=== PATIENT | male | born 1975 | race Caucasian/White ===

== ENCOUNTER → 2017-01-11 | Outpatient (CLI) | payer OTHER ==
[2017-01-12 10:16] LABS: BUN 15 mg/dL (7-18)
[2017-01-12 10:17] LABS: GFR (ESTIMATED) 126 ML/MIN (>60)
[2017-01-17 09:37] LABS: Hep B Surface Ab, Qual Reactive (.)
== END ==
LOC: CARL-LAB 10:50
PROVIDERS: Family Medicine
DX: T14.8 Other injury of unspecified body region (principal); Z77.21 Contact with and (suspected) exposure to potentially hazardous body fluids; W46.0XXA Contact with hypodermic needle, initial encounter; Z51.89 Encounter for other specified aftercare
CPT/HCPCS: G0432

== ENCOUNTER → 2017-06-21 | Outpatient (CLI) | payer OTHER ==
[2017-06-21 14:15] LABS: HEMOGLOBIN 16.8 g/dL (14.1-18.0); LYMPH # 1.5 K/mm3 (0.7-4.5); LYMPH % 28.9 % (10-50)
[2017-06-21 14:38] LABS: BUN 20 mg/dL (7-18)
[2017-06-21 14:57] LABS: GFR (ESTIMATED) 107 ML/MIN (>60)
[2017-06-22 08:46] LABS: HIV Screen 4th Generation wRfx Non Reactive (Non Reactive)
[2017-06-22 09:38] LABS: Hep B Surface Ab, Qual Reactive (.)
[2017-06-22 10:39] LABS: Estradiol <5.0 pg/mL (7.6-42.6)
== END ==
LOC: CARL-LAB 08:10
PROVIDERS: Internal Medicine Endocrinology, Diabetes & Metabolism
DX: E10.65 Type 1 diabetes mellitus with hyperglycemia (principal); E29.1 Testicular hypofunction; Z79.4 Long term (current) use of insulin; T14.8 Other injury of unspecified body region; Z77.21 Contact with and (suspected) exposure to potentially hazardous body fluids; W46.0XXA Contact with hypodermic needle, initial encounter; Z51.89 Encounter for other specified aftercare
CPT/HCPCS: G0432

== ENCOUNTER → 2017-09-19 | Outpatient (CLI) | payer OTHER ==
[~2017-09-19] MED LIST: ASPIRIN 81MG TA81 MG PO; GABAPENTIN 400400 MG PO; HUMALOG100 U/ML SC; NORCO1 TAB PO; SIMVASTATIN10 MG PO; TIZANIDINE HCL 44 MG NG; ZESTRIL 10MG TA10 MG PO
[2017-09-19 14:00] LABS: BUN 28 mg/dL (7-18)
[2017-09-19 14:01] LABS: GFR (ESTIMATED) 93 ML/MIN (>60)
[2017-09-19 14:11] LABS: LYMPH # 1.3 K/mm3 (0.7-4.5); LYMPH % 24.8 % (10-50)
[2017-09-19 14:20] LABS: HEMOGLOBIN 14.4 g/dL (14.1-18.0)
[2017-09-20 08:42] LABS: Iron 74 ug/dL (38-169); Iron Saturation 21 % (15-55); UIBC 272 ug/dL (111-343); Vitamin D, 25-Hydroxy 23.8 ng/mL (30.0-100.0)
[2017-09-20 09:37] LABS: Vitamin B12 343 pg/mL (211-946)
[2017-09-20 10:40] LABS: Creatinine, Urine 145.2 mg/dL (Not Estab.); Microalbumin, Urine 159.2 ug/mL (Not Estab.)
[2017-09-23 12:36] LABS: Testosterone, Total, LC/MS 445.7 ng/dL (264.0-916.0)
== END ==
LOC: CARL-LAB 07:41
PROVIDERS: Internal Medicine Endocrinology, Diabetes & Metabolism
DX: E10.65 Type 1 diabetes mellitus with hyperglycemia (principal); E03.8 Other specified hypothyroidism; E29.1 Testicular hypofunction; E78.00 Pure hypercholesterolemia, unspecified; I10 Essential (primary) hypertension; Z79.4 Long term (current) use of insulin